=== PATIENT | male | born 1965 | race Caucasian/White ===

== ENCOUNTER → 2024-07-23 | Outpatient (CLI) | payer BC, SELFPAY ==
[2024-07-23 08:03] LABS: Collection Type, Urine Clean Catch; Squamous Epithelial Cell,Urine 0 /hpf (0-5)
[2024-07-23 08:28] LABS: Basophils % (Auto) 0 % (0-2.5); Eosinophils # (Auto) 0.1 Thou/mm3 (0.0-0.5); Eosinophils % (Auto) 1 % (0-10); Hemoglobin 14.8 g/dL (13.5-16.0); Immature Granulocytes % (Auto) 0 % (0-0); Immature Granulocytes Auto 0.03 Thou/mm3 (0.00-0.00); Lymphocytes # (Auto) 1.2 Thou/mm3 (1.0-4.8); Lymphocytes % (Auto) 17 % (10-50); Mean Corpuscular HGB Conc 34.4 g/dl (31.0-37.0); Mean Corpuscular Hemoglobin 30.3 pg (25.0-35.0); Mean Corpuscular Volume 88 fL (80-100); Monocytes # (Auto) 0.5 Thou/mm3 (0.0-0.8); Monocytes % (Auto) 7 % (0-12); Neutrophils # (Auto) 5.1 Thou/mm3 (1.8-7.7); Neutrophils % (Auto) 73 % (37-80); Nucleated Red Blood Cell % 0 /100 WBC (0); Platelet Count 215 Thou/mm3 (140-440); RDW Standard Deviation 42.9 fL (35.1-43.9); Red Blood Count 4.88 Miln/mm3 (4.50-5.90)
[2024-07-23 08:34] LABS: Bilirubin,Urine Negative (Negative); Blood,Urine Negative (Negative); Clarity,Urine Clear (Clear/Hazy); Color,Urine Lt-Yellow (Lt Yel-Yel); Glucose, Urine Negative (Negative); Ketones,Urine Negative (Negative); Leukocyte Esterase,Urine Negative (Negative); Nitrite,Urine Negative (Negative); Protein,Urine Negative (Neg - Trace); RBC,Urine 2 /hpf (0-3); Specific Gravity,Urine 1.016 (1.001-1.035); Urobilinogen,Urine Negative mg/dL (0.0-1.0); WBC,Urine 1 /hpf (0-5)
[2024-07-23 09:00] LABS: Prostate Specific Antigen 0.68 ng/mL (0-4.00)
[2024-07-23 10:02] LABS: Alanine Aminotransferase 37 U/L (10-49); Albumin, Serum 4.6 gm/dL (3.5-5.0); Albumin/Globulin Ratio 2.2 (1.2-2.2); Alkaline Phosphatase 63 U/L (46-116); Anion Gap 5 (7-16); Aspartate Amino Transferase 25 U/L (0-34); BUN/Creatinine Ratio 13 Ratio (12-20); Blood Urea Nitrogen 15 mg/dL (9-23); Calcium 9.9 mg/dL (8.3-10.6); Calcium (Corrected) 9.9 mg/dL (8.5-10.1); Carbon Dioxide 31.6 mMol/L (20.0-31.0); Chloride 104 mMol/L (98-107); Creatinine (Component) 1.2 mg/dL (0.6-1.3); Globulin 2.1 gm/dL (2.3-3.5); Glucose 110 mg/dL (74-106); Osmolality,Calculated 283 (275-295); Potassium 3.4 mMol/L (3.4-5.1); Sodium 141 mMol/L (136-145); Total Protein 6.7 gm/dL (5.7-8.2); eGFR > 60 See Note
[2024-07-23 14:57] LABS: Bilirubin,Total 0.8 mg/dL (0.3-1.2); Cardiac Risk Estimate 4.4 RATIO (4.0-6.7); Cholesterol 167 mg/dL (132-200); HDL Cholesterol 38 mg/dL (40-60); LDL Cholesterol,Calculated 98 mg/dL (0-130); Triglycerides 156 mg/dL (30-150); Uric Acid 6.1 mg/dL (3.7-9.2)
== END | disposition home or self-care (01) ==
LOC: CDIM 06:53 → COPL 06:54
PROVIDERS: PCP Internal Medicine; Referring Provider Internal Medicine; Visit Provider Internal Medicine
DX: Z00.00 Encounter for general adult medical examination without abnormal findings (principal); I10 Essential (primary) hypertension; M10.00 Idiopathic gout, unspecified site
CPT/HCPCS: 36415; 80053; 80061; 81001; 84153; 84443; 84550; 85025

== ENCOUNTER → 2024-10-22 | Outpatient (CLI) | payer BC, SELFPAY ==
--- NOTE | 2024-10-22 | XR_ITS ---
Examination: Lumbar spine, 5 views Technique: Lumbar spine AP, lateral, coned lateral lower lumbar spine, bilateral obliques 5 views Exam date and time: October 22, 2024 0716 hours INDICATIONS: Low back pain radiating to the right hip beginning one year ago, history chronic lumbar pain with lumbar surgery 2017 FINDINGS: Status post transpedicular lumbar fusion L5-S1 Satisfactory alignment Significant degenerative disc disease T11-T12, T12-L1 No lumbar fracture No spondylolisthesis IMPRESSION: Transpedicular lumbar fusion L5-S1 with satisfactory alignment Significant degenerative disc disease T11-T12, T12-L1
--- NOTE | 2024-10-22 | XR_ITS ---
Examination:Right hip AP, lateral, AP pelvis 3 views Technique: Hip AP lateral, AP pelvis, 3 views Exam date and time:October 22, 2024 0716 hours INDICATIONS: Right hip pain beginning one year ago. FINDINGS: Mild to moderate narrowing hip joints bilaterally No right hip fracture or dislocation Left hip bones of the pelvis intact IMPRESSION: Mild to moderate narrowing hip joints.
[2024-10-22 10:39] LABS: Sed Rate (ESR) 3 mm/hr (0-20)
[2024-10-22 15:55] LABS: RA Screen Negative (Negative)
[2024-10-29 06:24] LABS: ANA Screen, IFA NEGATIVE (NEGATIVE)
== END | disposition home or self-care (01) ==
LOC: CDIM 09:15 → COPL 09:18
PROVIDERS: PCP Internal Medicine; Referring Provider Internal Medicine; Visit Provider Radiology Diagnostic Radiology
DX: M25.851 Other specified joint disorders, right hip (principal); M25.852 Other specified joint disorders, left hip; E78.2 Mixed hyperlipidemia; M25.551 Pain in right hip; J02.9 Acute pharyngitis, unspecified; I10 Essential (primary) hypertension; M51.34 Other intervertebral disc degeneration, thoracic region
CPT/HCPCS: 36415; 72110; 73502; 85652; 86038; 86430

== ENCOUNTER 2024-12-16 08:12 | Outpatient (AMB) | payer BC, SELFPAY ==
--- NOTE | 2024-12-16 08:32 | ORTHONT_ITS ---
Vital signs 12/16/24 08:36 Height 1.96 m Height Method Stated Weight 126.155 kg Weight Measurement Method Standing Scale BMI 33.0 BP 135/82 H Blood Pressure Source Automatic Cuff Blood Pressure Location Left Upper Arm Position Sitting Respiration 19 Pulse 62 Pulse Source Monitor Temp 98.6 F Temp Source Temporal Artery Scan Pulse Oximetry (%) 97 Oxygen Delivery Method Room Air Med/Allergies Allergies & Medications Allergies Penicillins Allergy (Severe, Verified 12/16/24 08:37) ANAPHYLAXIS hydralazine Allergy (Verified 12/16/24 08:37) Medication Reconciliation aspirin 81 mg tablet,delayed release (Aspir-) 81 mg PO QDAY ##0 07/21/14 [History Confirmed 12/16/24] olmesartan 40 mg-hydrochlorothiazide 25 mg tablet 1 tab PO QDAY #0 tabs 07/21/14 [History Confirmed 12/16/24] amlodipine 5 mg tablet 5 mg PO QDAY 11/28/18 [History Confirmed 12/16/24] methylprednisolone 4 mg tablets in a dose pack (Medrol (Cesar)) 4 mg PO DAILY UD #21 tabs 11/28/18 [Rx Confirmed 12/16/24] nebivolol 5 mg tablet (Bystolic) 5 mg PO QDAY 11/28/18 [History Confirmed 12/16/24] Exam Exam Patient is in no acute distress and is cooperative with the examination today. Breathing is nonlabored. In no respiratory distress. Patient has no paraspinal tenderness. Spinal deformity cannot be appreciated. The gait of the patient is nonantalgic Bilateral extremities were evaluated and demonstrates sensation intact to light touch. Palpable pedal pulses are present. No significant edema is present. Bilateral knees were examined and the patient has full strength and range of motion.. The left hip was examined. Patient was able to flex to 90 degrees, adduct to 30 degrees, abduct to 40 degrees, internally rotate to 20 degrees, and externally rotate to 20 degrees. Patient has a negative logroll. Stinchfield is negative. The patient is nontender diffusely to touch. The right hip was examined. Patient was able to flex to 90 degrees, adduct to 30 degrees, abduct to 40 degrees, internally rotate to 20 degrees, and externally rotate to 20 degrees. Patient has a negative logroll. The stinchfield is negative. X-rays of the right hip demonstrate No joint space narrowing at all. His spine hardware is intact Assessment and Plan Problem List (1) Bilateral hip pain: Status: Acute Plan: Pleasant 49-year-old male with bilateral hip pain. The pain is primarily on the sides and radicular bursitis. His x-rays actually look great and there is no arthritis at all. His hip examination is relatively benign at this time. We recommend continue anti-inflammatories. We discussed that we could do a a hip trochanteric bursitis injection should he have increased pain Office Procedures GNS Level of Care Nursing/Assessment Patient Status: Initial/New Patient Nursing Assessment/Reassesment: Medication Reconciliation, Update PMH in EMR and Vital Signs Coordination of Care: Complex Care and Chronic Disease 1-5, Education Complex Pt/Fam, Consent,records obtained, informed consent, 1 Ins Authorization, Lab and Imaging orders, Results/Orders obtained and Staff clarify orders New Patient Charge New Patient Point Assignment: 1124 New Patient Point Charge: COMMUNICATIONS DEPARTMENT HEAD Level 4 ([id number]) MA Intake Visit Data Collection New Patient or Established: New Patient (never been to [facility]) Reason for Visit:: RIGHT HIP PAIN Seen by Clinical Staff ONLY (RN/MA): No PCP or OBGYN visit in last 3 months: Yes Hx Now: No Do You Feel Safe at Home: Yes Authorities Contacted: N/A Questionairres Past Medical History Past Medical History Have you ever been diagnosed with any of the following: Cardiology Problems Congestive Heart Failure: No Hypertension: Yes Respiratory Problems Chronic Obstructive Pulmonary Disease (COPD): No Smoking: No Smoking Exposure: No Stomache/Intestinal Problems Gall Bladder Disease: Yes Genital/Urinary Problems Renal Disease: No Endocrine Problems Diabetes Mellitus Type 1: No Diabetes Mellitus Type 2: No Subjective Visit Visit for: new patient and hip (RIGHT) Immunization / Flu Flu Vaccine in the Last 12 Months: Yes Flu Vaccine Exclusion Criteria: Already Received History of Present Illness Chief complaint: right hip pain Date of injury / onset of symptoms: 10/02/2024 Sincere is a pleasant 59-year-old male with right and left pain primarily on the sides of his hip. This started 3 months ago. It started out of the blue. He has a history of back surgery. He has little difficulty putting on socks. The pain is calm down quite a bit and he has tried anti-inflammatories in the past Pain Pain level (0-10): 1 Pain duration: ON AND OFF Pain location: groin, inside (medial) and outside (lateral) Pain quality: dull Pain timing: increases with activity Associated signs & symptoms: other (specify) (POPPING) Ambulatory data Ambulatory device: none Treatments Number of previous injections: 0 Improvement with previous injections: No Number of Physical Therapy sessions: 0 Improvement with PT: No Improvement with NSAIDS: no Review of Systems Review of Systems: All systems negative unless otherwise noted in HPI.
[2024-12-16 08:36] VITALS: BP 135/82; PULSE 62; RESP 19; TEMP 37; O2SAT 97; BMI 33.0
== END 2024-12-16 08:59 | disposition home or self-care (01) ==
PROVIDERS: PCP Internal Medicine; Referring Provider Internal Medicine; Supervising Provider Orthopaedic Surgery Adult Reconstructive Orthopaedic Surgery; Visit Provider Orthopaedic Surgery Adult Reconstructive Orthopaedic Surgery
DX: M25.552 Pain in left hip (principal); M25.551 Pain in right hip; I10 Essential (primary) hypertension
CPT/HCPCS: 99204; G0463